=== PATIENT | male | born 1980 | race Hispanic/Latino ===

== ENCOUNTER 2019-05-08 09:56 | Emergency (ER) | payer OTHER ==
[2019-05-08 10:52] LABS: Absolute Lymphocytes (CBC) 1.4 K/uL (0.7-4.9); Basophils % 0.5 % (0-1.3); Eosinophils % 0.5 % (0-4.4); Lymphocytes % 25.1 % (15.3-44.8); MPV 8.3 fL (7.6-11.3); Monocytes % 9.6 % (3.3-12.3); RBC Red Blood Cell Count 5.49 M/uL (4.33-5.43)
--- NOTE | 2019-05-08 11:18 | RAD REPORT ---
EXAM DESCRIPTION: RAD - Chest Single View - 05/08/2019 10:58 am CLINICAL HISTORY: Cough, hyperglycemia COMPARISON: February 2012 TECHNIQUE: AP portable chest image was obtained 1053 hours . FINDINGS: Lungs are clear. Heart and vasculature are normal. No measurable pleural effusion and no p neumothorax. No acute bony abnormality seen. No acute aortic findings suspected. IMPRESSION: No acute cardiopulmonary process. No significant interval change.
[2019-05-08 11:24] LABS: Potassium 4.3 mmol/L (3.5-5.1)
[2019-05-08] MEDS ORDERED: NA CHLORIDE 0.9% 1,000 ML ONE (12:13)
[2019-05-08] MEDS ORDERED: INSULIN -REGULAR HUMAN 50 UNIT/0.5 ML ML ONE (12:13)
[2019-05-08 12:48] LABS: Urine Blood NEGATIVE (NEG); Urine Glucose 3+ (NEG); Urine Protein NEGATIVE (NEG); Urine Specific Gravity <1.005 (1.005-1.030); Urine pH 5.5 (5.0-7.0)
--- NOTE | 2019-05-08 13:13 | ER ---
Nurse's Notes [facility] Name: Ezequiel Figueroa Age: 38 yrs Sex: Male : 1980 Arrival Date: 05/08/2019 Time: 09:58 Bed 19 Private MD: Diagnosis: New onset diabetes mellitus;hyperglycemia Presentation: 05/08 10:12 Presenting complaint: Patient states: at home, my sugar is 600 yesterday, denies other hj symptoms; states "i just want my sugar to be checked";. Transition of care: patient was not received from another setting of care. Onset of symptoms was May 08, 2019. Risk Assessment: Do you want to hurt yourself or someone else? Patient reports no desire to harm self or others. Initial Sepsis Screen: Does the patient meet any 2 criteria? No. Patient's initial sepsis screen is negative. Does the patient have a suspected source of infection? No. Patient's initial sepsis screen is negative. Care prior to arrival: None. 10:12 Method Of Arrival: Ambulatory 10:12 Acuity: BRANDI 3 hj Triage Assessment: 10:15 General: Appears in no apparent distress. comfortable, Behavior is calm, cooperative, bp appropriate for age. Pain: Denies pain. EENT: No deficits noted. Neuro: No deficits noted. Cardiovascular: No deficits noted. Respiratory: No deficits noted. GI: No signs and/or symptoms were reported involving the gastrointestinal system. : No signs and/or symptoms were reported regarding the genitourinary system. Derm: No deficits noted. Musculoskeletal: No deficits noted. Historical: - Allergies: 10:14 Benadryl; hj - PMHx: 10:14 Hypertension; hj - PSHx: 10:14 None; hj - Immunization history:: Adult Immunizations up to date. - Social history:: Smoking status: Patient uses tobacco products, unknown amount. - Ebola Screening: : No symptoms or risks identified at this time. Screenin:15 Abuse screen: Denies threats or abuse. Denies injuries from another. Nutritional bp screening: No deficits noted. Tuberculosis screening: No symptoms or risk factors identified. Fall Risk None identified. Assessment: 10:15 General: SEE TRIAGE NTOE. bp 11:25 Reassessment: Dr Fu notified of critical lab Glucose 571. ss 12:20 Reassessment: IVF INFUSING, REPEAT BGL PENDING. bp 13:24 Reassessment: PT D/C HOME AMBULATORY, DX WITH HYPERGLYCEMIA. bp Vital Signs: 10:14 Pulse 94; Resp 18; Temp 98.0(TE); Pulse Ox 98% on R/A; Weight 85.73 kg; Height 5 ft. 9 hj in. (175.26 cm); Pain 0/10; 10:37 BP 107 / 74; ss 12:20 BP 114 / 77; Pulse 92; Resp 16; Pulse Ox 98% ; bp 10:14 Body Mass Index 27.91 (85.73 kg, 175.26 cm) hj ED Course: 09:58 Patient arrived in ED. as 10:13 Triage completed. hj 10:14 Arm band placed on right wrist. hj 10:22 Robin Ralph, STELLA is Primary Nurse. bp 10:27 Patient has correct armband on for positive identification. Placed in gown. Bed in low mh5 position. Call light in reach. Side rails up X 1. Pulse ox on. NIBP on. 10:32 Bienvenido Fu MD is Attending Physician. ps1 10:33 Inserted saline lock: 20 gauge in right antecubital area, using aseptic technique. ss Blood collected. Patient maintains SpO2 saturation greater than 95% on room air. 10:57 X-ray completed. Portable x-ray completed in exam room. Patient tolerated procedure jb2 well. 10:58 CXR XRAY In Process Unspecified. EDMS 13:24 No provider procedures requiring assistance completed. IV discontinued, intact, bp bleeding controlled, No redness/swelling at site. Pressure dressing applied. Administered Medications: 12:00 Drug: NS 0.9% 1000 ml Route: IV; Rate: 1 bolus; Site: right antecubital; bp 12:57 Follow up: IV Status: Completed infusion; IV Intake: 1000ml bp 12:03 Drug: Insulin Regular Human 5 units {Co-Signature: ls4 (Yadira oGncalves RN).} Route: bp Sub-Q; Site: right upper arm; 12:56 Follow up: Response: No adverse reaction bp Point of Care Testing: Blood Glucose: 10:16 Blood Glucose: 500 mg/dL; hj 13:03 Blood Glucose: 221 mg/dL; bp 10:16 greater than 500 hj Ranges: Intake: 12:57 IV: 1000ml; Total: 1000ml. bp Outcome: 13:13 Discharge ordered by . ps1 13:25 Discharged to home ambulatory, with family. bp 13:25 Condition: stable 13:25 Discharge instructions given to patient, Instructed on discharge instructions, follow up and referral plans. medication usage, Demonstrated understanding of instructions, follow-up care, medications, Prescriptions given X 3. 13:26 Patient left the ED. bp Signatures: Dispatcher [employer] EDMS Louie Rubalcava Amelia as Smirch, Shelby, STELLA RN Diallo Johansen RN RN Lauren Mccauley [facility] Robin Ralph RN RN bp Bienvenido Fu MD MD ps1 Yadira Goncalves RN ls4
--- NOTE | 2019-05-08 13:14 | EDPHYS ---
Physician Documentation [facility] Name: Ezequiel Figueroa Age: 38 yrs Sex: Male : 1980 Arrival Date: 05/08/2019 Time: 09:58 Bed 19 Private MD: ED Physician Bienvenido Fu HPI: 05/08 11:25 This 38 yrs old Male presents to ER via Ambulatory with complaints of High ps1 Blood Sugar. 11:25 patient hx of HTN. No hx of DM. Patient states that he has had symptoms of ps1 hyperglycemia. Vision changes over months, polydipsia, polyuria, drinking a lot of tea. Random BS checked at home and elevated. >600 in triage. . Historical: - Allergies: 10:14 Benadryl; hj - PMHx: 10:14 Hypertension; hj - PSHx: 10:14 None; hj - Immunization history:: Adult Immunizations up to date. - Social history:: Smoking status: Patient uses tobacco products, unknown amount. - Ebola Screening: : No symptoms or risks identified at this time. ROS: 11:25 Constitutional: Negative for fever, chills, and weight loss. ps1 11:25 Cardiovascular: Negative for chest pain, palpitations, and edema, Respiratory: Negative for shortness of breath, cough, wheezing, and pleuritic chest pain, Abdomen/GI: Negative for abdominal pain, nausea, vomiting, diarrhea, and constipation, MS/Extremity: Negative for injury and deformity, Skin: Negative for injury, rash, and discoloration. 11:25 Constitutional: Positive for fatigue. 11:25 Eyes: Positive for visual disturbance. 11:25 Endocrine: Positive for polydipsia, polyuria. Exam: 11:25 Constitutional: This is a well developed, well nourished patient who is awake, alert, ps1 and in no acute distress. Head/Face: Normocephalic, atraumatic. ENT: Nares patent. No nasal discharge, no septal abnormalities noted. Tympanic membranes are normal and external auditory canals are clear. Oropharynx with no redness, swelling, or masses, exudates, or evidence of obstruction, uvula midline. Mucous membranes moist. Chest/axilla: Normal chest wall appearance and motion. Nontender with no deformity. No lesions are appreciated. Cardiovascular: Regular rate and rhythm. No gallops, murmurs, or rubs. Normal PMI, no JVD. No pulse deficits. Respiratory: Lungs have equal breath sounds bilaterally, clear to auscultation and percussion. No rales, rhonchi or wheezes noted. No increased work of breathing, no retractions or nasal flaring. Abdomen/GI: Soft, non-tender, with normal bowel sounds. No distension or tympany. No guarding or rebound. No evidence of tenderness throughout. Skin: Warm, dry with normal turgor. Normal color with no rashes, no lesions, and no evidence of cellulitis. MS/ Extremity: Pulses equal, no cyanosis. Neurovascular intact. Full, normal range of motion. Neuro: Awake and alert, GCS 15, oriented to person, place, time, and situation. Cranial nerves II-XII grossly intact. Sensory grossly intact. Vital Signs: 10:14 Pulse 94; Resp 18; Temp 98.0(TE); Pulse Ox 98% on R/A; Weight 85.73 kg; Height 5 ft. 9 hj in. (175.26 cm); Pain 0/10; 10:37 BP 107 / 74; ss 12:20 BP 114 / 77; Pulse 92; Resp 16; Pulse Ox 98% ; bp 10:14 Body Mass Index 27.91 (85.73 kg, 175.26 cm) hj MDM: 10:41 Patient medically screened. ps1 13:09 Data reviewed: vital signs, nurses notes, and as a result, I will discharge patient. ps1 Counseling: I had a detailed discussion with the patient and/or guardian regarding: the historical points, exam findings, and any diagnostic results supporting the discharge/admit diagnosis, lab results, the need for outpatient follow up. ED course: glucose responed to fluids and sq insulin administration. No evidence of DKA. Home with metformin 500 bid and glipizide 10mg. . 05/08 10:24 Order name: CBC with Diff; Complete Time: 11:08 bp 05/08 10:24 Order name: BMP; Complete Time: 11:28 bp 05/08 10:40 Order name: Hemoglobin A1c ps1 05/08 10:40 Order name: CXR XRAY; Complete Time: 11:25 ps1 05/08 11:53 Order name: Urine Dipstick--Ancillary (enter results); Complete Time: 13:02 ag 05/08 13:03 Order name: Glucose ps1 05/08 10:36 Order name: Glucose Level; Complete Time: 10:36 ss 05/08 10:40 Order name: Urine Dipstick-Ancillary (obtain specimen); Complete Time: 11:42 ps1 Administered Medications: 12:00 Drug: NS 0.9% 1000 ml Route: IV; Rate: 1 bolus; Site: right antecubital; bp 12:57 Follow up: IV Status: Completed infusion; IV Intake: 1000ml bp 12:03 Drug: Insulin Regular Human 5 units {Co-Signature: ls4 (Yadira Goncalves RN).} Route: bp Sub-Q; Site: right upper arm; 12:56 Follow up: Response: No adverse reaction bp Point of Care Testing: Blood Glucose: 10:16 Blood Glucose: 500 mg/dL; hj 13:03 Blood Glucose: 221 mg/dL; bp 10:16 greater than 500 hj Ranges: Critical Glucose Levels:Adult <50 mg/dl or >400 mg/dl <40 mg/dl or >180 mg/dl Disposition: 05/08/19 13:13 Discharged to Home. Impression: New onset diabetes mellitus, hyperglycemia. - Condition is Stable. - Discharge Instructions: Type 2 Diabetes Mellitus, Diagnosis, Adult, Basic Carbohydrate Counting for Diabetes Mellitus, Diabetes Mellitus and Food. - Prescriptions for Metformin 500 mg Oral Tablet - take 1 tablet by ORAL route every 12 hours for 30 days Then take 1 tablet with morning meals AND evening meals; 60 tablet. Glipizide 10 mg Oral Tablet - take 1 tablet by ORAL route once daily before a meal; 20 tablet. - Medication Reconciliation Form, Thank You Letter, Antibiotic Education, Prescription Opioid Use form. - Follow up: Private Physician; When: 48 Hours; Reason: Further diagnostic work-up, Recheck today's complaints, Continuance of care, Re-evaluation by your physician. - Problem is new. - Symptoms have improved. Signatures: Dispatcher [employer] Lisbet Saucedo RN RN Diallo Johansen RN RN hj Robin Ralph RN RN bp Bienvenido Fu MD MD ps1 Yadira Goncalves RN ls4 Corrections: (The following items were deleted from the chart) 13:26 13:13 05/08/2019 13:13 Discharged to Home. Impression: New onset diabetes mellitus; bp hyperglycemia. Condition is Stable. Forms are Medication Reconciliation Form, Thank You Letter, Antibiotic Education, Prescription Opioid Use. Follow up: Private Physician; When: 48 Hours; Reason: Further diagnostic work-up, Recheck today's complaints, Continuance of care, Re-evaluation by your physician. Problem is new. Symptoms have improved. ps1
[2019-05-10 17:14] VITALS: BP 114/77; TEMP 98; O2SAT 98
== END 2019-05-08 13:26 | disposition home or self-care (01) ==
LOC: ER 09:56
DX: E11.65 Type 2 diabetes mellitus with hyperglycemia (principal); I10 Essential (primary) hypertension; Z72.0 Tobacco use; Z88.8 Allergy status to other drugs, medicaments and biological substances
CPT/HCPCS: 85025; 80048; 36415; 82947; 82962 ×2; 81003; 71045; 96360; 96372; 99284; J7030

== ENCOUNTER 2020-05-02 10:17 | Emergency (ER) | payer OTHER ==
[2020-05-02 11:06] LABS: Absolute Lymphocytes (CBC) 1.7 K/uL (0.7-4.9); Basophils % 0.5 % (0-1.3); Hematocrit 48.7 % (39.6-49.0); Lymphocytes % 24.1 % (15.3-44.8); MPV 8.4 fL (7.6-11.3); RBC Red Blood Cell Count 5.61 M/uL (4.33-5.43)
[2020-05-02] MEDS ORDERED: LORazepam 2 MG/ML VIAL ONE ×2 (11:11→13:36)
[2020-05-02] MEDS ORDERED: HALOPERIDOL LACT 5 MG/ML INJ ONE (11:12)
[2020-05-02] MEDS ORDERED: hydrOXYzine HCL 25 MG TAB ONE (11:12)
[2020-05-02 11:13] LABS: Protime INR 0.92
[2020-05-02 11:46] LABS: ALT/SGPT 20 U/L (12-78); AST/SGOT 5 U/L (15-37); Alkaline Phosphatase 110 U/L (45-117); BUN Blood Urea Nitrogen 8 mg/dL (7-18); Bicarbonate 23 mmol/L (21-32); Bilirubin Direct < 0.1 mg/dL (0-0.2); Bilirubin Total 0.4 mg/dL (0.2-1.0); Glucose Level 278 mg/dL (74-106); Potassium 3.8 mmol/L (3.5-5.1); Protein, Total 7.7 g/dL (6.4-8.2); Sodium Level 138 mmol/L (136-145)
[2020-05-02 12:28] LABS: Barbiturates NEGATIVE (NEGATIVE); Benzodiazepines NEGATIVE (NEGATIVE); Cocaine NEGATIVE (NEGATIVE); METHAMPHETAM NEGATIVE (NEGATIVE); Methadone NEGATIVE (NEGATIVE); Opiates NEGATIVE (NEGATIVE); Phencyclidine NEGATIVE (NEGATIVE); THC Cannibis NEGATIVE (NEGATIVE)
[2020-05-02] MEDS ORDERED: NICOTINE 21 MG/PAT TD ONE (13:36)
[2020-05-02 14:08] LABS: Urine Blood NEGATIVE (NEG); Urine Glucose 2+ (NEG); Urine Protein NEGATIVE (NEG)
--- NOTE | 2020-05-02 14:58 | EDPHYS ---
Physician Documentation [facility] Name: Ezequiel Figueroa Age: 39 yrs Sex: Male : 1980 Arrival Date: 05/02/2020 Time: 10:19 Bed 18 Private MD: ED Physician Orestes Villalobos HPI: 05/02 11:13 This 39 yrs old Male presents to ER via EMS with complaints of Psych Problem. jr8 11:13 The patient presents to the emergency department with psychosis, has experienced jr8 auditory hallucinations, has experienced visual hallucinations. Onset: The symptoms/episode began/occurred gradually, 1 week(s) ago. Past psychiatric history: History of Schizophrenia . Associated signs and symptoms: The patient has no apparent associated signs or symptoms. Severity of symptoms: At their worst the symptoms were moderate in the emergency department the symptoms are unchanged. The patient has experienced similar episodes in the past, several times. It is unknown whether or not the patient has recently seen a physician. Family called EMS because patient was becoming more aggravated and delusional. History of schizophrenia and has been off of his medications for past week. Hearing and seeing things. Talking to people who are not presently in room. Historical: - Allergies: 10:24 Benadryl; ph - PMHx: 10:24 Hypertension; ph 10:25 Schizophrenia; Diabetes - IDDM; ph - PSHx: 10:24 None; ph - Immunization history:: Adult Immunizations unknown. - Social history:: Smoking status: unknown. ROS: 11:13 Eyes: Negative for injury, pain, redness, and discharge, ENT: Negative for injury, jr8 pain, and discharge, Neck: Negative for injury, pain, and swelling, Cardiovascular: Negative for chest pain, palpitations, and edema, Respiratory: Negative for shortness of breath, cough, wheezing, and pleuritic chest pain, Abdomen/GI: Negative for abdominal pain, nausea, vomiting, diarrhea, and constipation, Back: Negative for injury and pain, MS/Extremity: Negative for injury and deformity, Skin: Negative for injury, rash, and discoloration, Neuro: Negative for headache, weakness, numbness, tingling, and seizure. 11:13 Psych: Positive for auditory hallucinations, visual hallucinations, Negative for suicide gesture, suicidal ideation. Exam: 11:13 Eyes: Pupils equal round and reactive to light, extra-ocular motions intact. Lids and jr8 lashes normal. Conjunctiva and sclera are non-icteric and not injected. Cornea within normal limits. Periorbital areas with no swelling, redness, or edema. ENT: Nares patent. No nasal discharge, no septal abnormalities noted. Tympanic membranes are normal and external auditory canals are clear. Oropharynx with no redness, swelling, or masses, exudates, or evidence of obstruction, uvula midline. Mucous membranes moist. Neck: Trachea midline, no thyromegaly or masses palpated, and no cervical lymphadenopathy. Supple, full range of motion without nuchal rigidity, or vertebral point tenderness. No Meningismus. Cardiovascular: Regular rate and rhythm with a normal S1 and S2. No gallops, murmurs, or rubs. Normal PMI, no JVD. No pulse deficits. Respiratory: Lungs have equal breath sounds bilaterally, clear to auscultation and percussion. No rales, rhonchi or wheezes noted. No increased work of breathing, no retractions or nasal flaring. Abdomen/GI: Soft, non-tender, with normal bowel sounds. No distension or tympany. No guarding or rebound. No evidence of tenderness throughout. Back: No spinal tenderness. No costovertebral tenderness. Full range of motion. Skin: Warm, dry with normal turgor. Normal color with no rashes, no lesions, and no evidence of cellulitis. MS/ Extremity: Pulses equal, no cyanosis. Neurovascular intact. Full, normal range of motion. Neuro: Awake and alert, GCS 15, oriented to person, place, time, and situation. Cranial nerves II-XII grossly intact. Motor strength 5/5 in all extremities. Sensory grossly intact. Cerebellar exam normal. Normal gait. 11:13 Psych: Behavior/mood is cooperative, Affect is animated, Oriented to person, place, time, Patient has no thoughts/intents to harm self or others. Judgement / Insight is impaired. Delusions/hallucinations are present and described as see hpi. Vital Signs: 10:19 BP 134 / 81; Pulse 96; Resp 18; Temp 98.7; Pulse Ox 96% ; Weight 96.16 kg; Height 5 ft. ph 11 in. (180.34 cm); 14:12 BP 127 / 82; Pulse 86; Resp 16; Pulse Ox 96% ; ah 10:19 Body Mass Index 29.57 (96.16 kg, 180.34 cm) ph MDM: 10:23 Patient medically screened. [facility] 14:10 Data reviewed: vital signs, nurses notes, lab test result(s), EKG. Data interpreted: Pulse oximetry: on room air is 96 %. Interpretation: normal. Counseling: I had a detailed discussion with the patient and/or guardian regarding: the historical points, exam findings, and any diagnostic results supporting the discharge/admit diagnosis, lab results. ED course: Talked with [facility] and [facility] patient needs inpatient therapy. Trying for placement now . 14:55 ED course: Dr. Rodriguez at [facility] accepted patient for acute psychosis . [facility] 05/02 10:23 Order name: Acetaminophen; Complete Time: 12:12 [facility] 05/02 10:23 Order name: Basic Metabolic Panel; Complete Time: 12:12 [facility] 05/02 10:23 Order name: CBC with Diff; Complete Time: 11:10 [facility] 05/02 10:23 Order name: ETOH Level; Complete Time: 12:12 [facility] 05/02 10:23 Order name: Hepatic Function; Complete Time: 12:12 [facility] 05/02 10:23 Order name: PT-INR; Complete Time: 11:18 [facility] 05/02 10:23 Order name: Ptt, Activated; Complete Time: 11:18 [facility] 05/02 10:23 Order name: Salicylate; Complete Time: 12:15 [facility] 05/02 10:23 Order name: Urine Drug Screen; Complete Time: 12:37 [facility] 05/02 10:23 Order name: EKG; Complete Time: 10:24 [facility] 05/02 12:20 Order name: Urine Dipstick--Ancillary (enter results); Complete Time: 14:10 05/02 10:23 Order name: EKG - Nurse/Tech; Complete Time: 11:34 [facility] 05/02 10:23 Order name: IV Saline Lock; Complete Time: 11:34 [facility] 05/02 10:23 Order name: Labs collected and sent; Complete Time: 11:34 [facility] 05/02 10:23 Order name: Urine Dipstick-Ancillary (obtain specimen); Complete Time: 12:22 Administered Medications: 11:15 Drug: HALdol 2 mg Route: IVP; Site: right antecubital; 12:22 Follow up: Response: No adverse reaction 11:15 Drug: Ativan 1 mg Route: IVP; Site: right antecubital; 12:21 Follow up: Response: No adverse reaction 11:15 Drug: hydrOXYzine 25 mg Route: PO; 12:21 Follow up: Response: No adverse reaction Disposition: 19:39 Co-signature as Attending Physician, Orestes Villalobos MD. [email or web address] Disposition: 05/02/20 14:57 Transfer ordered to Psych Facility. Diagnosis are Schizophrenia, Acute Psychosis. - Reason for transfer: Higher level of care. - Accepting physician is Dr. Rodriguez. - Condition is Stable. - Problem is new. - Symptoms have improved. Signatures: Dispatcher [employer] EDMS Rao Jordan PA PA [id number] Suze Jorge, RN RN Swapna Salas Amy, RN RN ah Holmes, Maurice, MD MD [email or web address] Corrections: (The following items were deleted from the chart) 15:57 14:57 05/02/2020 14:57 Transfer ordered to Psych Facility. Diagnosis is Schizophrenia; eb Acute Psychosis. Reason for transfer: Higher level of care. Accepting physician is Dr. Rodriguez. Condition is Stable. Problem is new. Symptoms have improved. jr8
--- NOTE | 2020-05-02 14:58 | ER ---
Nurse's Notes [facility] Name: Ezequiel Figueroa Age: 39 yrs Sex: Male : 1980 Arrival Date: 05/02/2020 Time: 10:19 Bed 18 Private MD: Diagnosis: Schizophrenia;Acute Psychosis Presentation: 05/02 10:19 Chief complaint: EMS states: Pt c/o visual and auditory hallucinations, has extensive ph psychiatric hx, family reports that he has been off of his medications for approx 1 week, denies SI or HI, states, " I'm just having an episode" BGL 261, pt self administered insulin before coming to ED, other VSS. Coronavirus screen: Patient denies a cough. Patient denies shortness of breath or difficulty breathing. Patient denies measured and/or subjective temperature greater than 100.4F prior to today's visit. Patient denies travel on a cruise ship or to a country the [facility] currently lists as an affected area. Patient denies contact with known and/or suspected case of COVID-19. Ebola Screen: No symptoms or risks identified at this time. Initial Sepsis Screen: Does the patient meet any 2 criteria? No. Patient's initial sepsis screen is negative. Does the patient have a suspected source of infection? No. Patient's initial sepsis screen is negative. Risk Assessment: Do you want to hurt yourself or someone else? Patient reports no desire to harm self or others. Onset of symptoms was May 02, 2020. 10:19 Method Of Arrival: EMS: [facility] ph 10:19 Acuity: BRANDI 2 ph Historical: - Allergies: 10:24 Benadryl; ph - PMHx: 10:24 Hypertension; ph 10:25 Schizophrenia; Diabetes - IDDM; ph - PSHx: 10:24 None; ph - Immunization history:: Adult Immunizations unknown. - Social history:: Smoking status: unknown. Screenin:39 Abuse screen: Denies threats or abuse. Nutritional screening: No deficits noted. Tuberculosis screening: No symptoms or risk factors identified. Fall Risk None identified. Assessment: 10:45 General: Appears in no apparent distress. Behavior is inappropriate for age. Pain: Denies pain. Neuro: Level of Consciousness is awake, alert, Oriented to. Cardiovascular: Capillary refill < 3 seconds Patient's skin is warm and dry. Respiratory: Airway is patent Respiratory effort is even, unlabored, Respiratory pattern is regular, symmetrical. Derm: Skin is intact, is healthy with good turgor, Skin is dry. 11:45 Reassessment: Patient and/or family updated on plan of care and expected duration. Pain ah level reassessed. Patient is alert, oriented x 3, equal unlabored respirations, skin warm/dry/pink. Mom at bedside. No needs voiced at this time. 13:20 Reassessment: Pt on facetime with [employer] via IPad. 13:26 Reassessment: Pt pacing back and forth in ER room asking to go outside and smoke and states that he is about to lose it and needs something. Informed Pt I will talk with physician and get him a nicotine patch. 13:35 Reassessment: Placed a nicotine patch on patients left deltoid and gave him ativan per provider order. Pt lying in bed. Mother is on facetSendMe with [employer]. 14:00 Reassessment: Pt lying in bed resting with eyes closed and resp even and unlabored. No ah needs voiced at this time. 14:10 Reassessment: Pt walked to the door and asked to go smoke outside. Informed Pt that he ah has a nicotine patch on and he cannot go outside. Redirected Pt back to the bed and encouraged him to stay in bed so he will not fall due to the medication. Pt voiced understanding and got back in bed. Vitals obtained at this time. 14:40 Reassessment: Pt lying in bed resting on his left side with eyes closed and resp even ah and unlabored. 14:51 Reassessment: Nurse to nurse report given to madelaine south. Psych: 11:00 Subjective: Patient's mood is Hallucinations are auditory. Objective: Patient is cooperative, irritable, Speech is rambling, rapid, Affect is appropriate. Interventions: Urine collected and sent for urine drug test. Patient reassessed during use of restraints. Patient is physically safe. Suicide Risk Assessment: Sad Person Scale: Sex of patient: Male: Score 1 point. Age of patient: Score 0 point if patient falls outside of specified age parameters. Previous Attempt: Score 1 point if patient has previously attempted suicide. Substance Abuse: Score 0 point if patient does not abuse alcohol or drugs. Rational Thinking: Score 1 point if patient is lacking rational thinking. Social Support: Score 0 if social support is present/available. Relationship: Score 1 point if patient is , , , or for a single male Chronic Sickness: Score 1 point if patient has illness, chronic, debilitating, or severe. TOTAL POINTS: If total points are 5-6, proposed clinical action is to strongly consider hospitalization, depending upon confidence in the follow-up arrangement. Implement suicide precautions. Safety Checks: Pt has been placed in a hallway bed/chair. Visitors are present. Pt denies substance abuse. Vital Signs: 10:19 BP 134 / 81; Pulse 96; Resp 18; Temp 98.7; Pulse Ox 96% ; Weight 96.16 kg; Height 5 ft. ph 11 in. (180.34 cm); 14:12 BP 127 / 82; Pulse 86; Resp 16; Pulse Ox 96% ; ah 10:19 Body Mass Index 29.57 (96.16 kg, 180.34 cm) ph ED Course: 10:19 Patient arrived in ED. ph 10:22 Triage completed. ph 10:23 Rao Jordan PA is PHCP. jr8 10:23 Orestes Villalobos MD is Attending Physician. jr8 10:25 Arm band placed on Patient placed in an exam room, on a stretcher, on pulse oximetry. ph 10:38 Teresa Andrade, RN is Primary Nurse. ah 11:00 Patient has correct armband on for positive identification. Bed in low position. Call light in reach. Side rails up X 1. Adult w/ patient. 11:00 Inserted saline lock: 20 gauge in right antecubital area, using aseptic technique. ah 12:16 [facility] Crisis line called/ a screener will be paged. eb 13:02 connected [facility] with Teresa Hung/. eb 14:24 called and faxed over patient chart to [facility] in the attempt to transfer the eb patient. Sandrita from [facility] notified. 14:40 connected the nurse from [facility] with Teresa Hung for patient transfer eb consultation. 15:00 No provider procedures requiring assistance completed. IV discontinued, intact, ah bleeding controlled, No redness/swelling at site. Pressure dressing applied. Administered Medications: 11:15 Drug: HALdol 2 mg Route: IVP; Site: right antecubital; 12:22 Follow up: Response: No adverse reaction ah 11:15 Drug: Ativan 1 mg Route: IVP; Site: right antecubital; 12:21 Follow up: Response: No adverse reaction ah 11:15 Drug: hydrOXYzine 25 mg Route: PO; ah 12:21 Follow up: Response: No adverse reaction ah Outcome: 14:57 ER care complete, transfer ordered by . levon 15:15 Condition: stable ah 15:45 Transferred by ground EMS Transfer form completed. 15:57 Patient left the ED. eb Signatures: Rao Jordan PA PA jrSuze Nunez, RN RN Swapna Romo Amy RN RN
[2020-05-02 16:15] VITALS: TEMP 98.7; O2SAT 96
[2020-05-02 16:16] VITALS: BP 127/82
--- NOTE | 2020-05-03 06:49 | EKG ---
Test Date: 2020-05-02 Test Time: 11:04:32 Avionics System Engineer: EVANGELINA MEASUREMENT RESULTS: Intervals: Rate: 82 DE: 164 QRSD: 90 QT: 374 QTc: 436 [place]: P: 54 DE: 164 QRS: 64 T: 59 INTERPRETIVE STATEMENTS: Normal sinus rhythm Septal infarct, age undetermined Abnormal ECG Compared to ECG 04/11/2016 03:58:16 No significant changes Electronically Signed On 05-03-20 06:48:03 CDT by Mahad Gill
== END 2020-05-02 15:57 ==
LOC: ER 10:17
DX: F20.9 Schizophrenia, unspecified (principal); I10 Essential (primary) hypertension; Z88.8 Allergy status to other drugs, medicaments and biological substances
CPT/HCPCS: 93005; 85025; 80048; 36415; 80320; 80329 ×2; 85610; 80076; 80307 ×8; 85730; 81003; 96375; 96374; 99285; J1630

== ENCOUNTER → 2023-12-28 | Emergency (ER) | payer OTHER ==
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
[2023-12-28 01:23] VITALS: BP 127/71; TEMP 98; O2SAT 98
== END ==
LOC: ER 00:17
DX: Z71.1 Person with feared health complaint in whom no diagnosis is made (principal)

== ENCOUNTER 2025-01-12 19:13 | Emergency (ER) | payer OTHER ==
[2025-01-12] MEDS ORDERED: HALOPERIDOL LACT 5 MG/ML INJ ONE (20:36)
[2025-01-12] MEDS ORDERED: NA CHLORIDE 0.9% 1,000 ML ONE (21:10)
[2025-01-12 21:12] LABS: Absolute Eosinophils 0.1 K/uL (0-0.5); Absolute Lymphocytes (CBC) 1.8 K/uL (0.7-4.9); Absolute Monocytes 0.7 K/uL (0.1-1.3); Absolute Neutrophil 4.9 K/uL (1.8-8.0); Basophils % 0.5 % (0-1.3); Eosinophils % 0.9 % (0-4.4); Hematocrit 41.3 % (39.6-49.0); Hemoglobin 14.3 g/dL (13.6-17.9); MCH 30.3 pg (27.0-35.0); MCHC 34.6 g/dL (32.0-36.0); MCV 87.7 fL (80-100); MPV 8.1 fL (7.6-11.3); Monocytes % 9.3 % (3.3-12.3); Neutrophils % 65.3 % (41.7-73.7); Nucleated Red Blood Cells % 0.1 % (0-0); Platelets 242 thou/uL (152-406); RBC Red Blood Cell Count 4.71 M/uL (4.33-5.43); Red Cell Distribution Width 13.3 % (12.1-15.2)
[2025-01-12 21:13] LABS: Specific Gravity 1.009 (1.005-1.030); Urine Bilirubin NEGATIVE (Negative); Urine Blood Negative (Negative); Urine Clarity Clear (Clear); Urine Color Colorless (Yellow); Urine Glucose 1+ (Negative); Urine Ketones NEGATIVE (Negative); Urine Microscopic Reflex YN NO UMIC; Urine Nitrite NEGATIVE (Negative); Urine Protein NEGATIVE (Negative); Urine Urobilinogen Normal (Normal); Urine pH 6.5 (5.0-7.0)
[2025-01-12 21:21] LABS: PT Prothrombin Time 12.2 SECONDS (10.0-13.0); Protime INR 1.07
[2025-01-12 21:23] LABS: Barbiturates NEGATIVE (NEGATIVE); Benzodiazepines NEGATIVE (NEGATIVE); Cocaine NEGATIVE (NEGATIVE); METHAMPHETAM POSITIVE (NEGATIVE); Methadone NEGATIVE (NEGATIVE); Opiates NEGATIVE (NEGATIVE); Phencyclidine NEGATIVE (NEGATIVE); THC Cannibis POSITIVE (NEGATIVE)
[2025-01-12 21:37] LABS: ALT/SGPT 19 U/L (16-61); Albumin 3.5 g/dL (3.4-5.0); Alkaline Phosphatase 84 U/L (45-117); Anion Gap 10.7 mEq/L (5.0-15.0); BUN Blood Urea Nitrogen 8 mg/dL (7-18); Bicarbonate 27 mEq/L (21-32); Bilirubin Total 0.4 mg/dL (0.2-1.0); Globulin 3.5 g/dL (2.3-3.5); Glomerular Filtration Rate 109 ml/min (=/>90); Glucose Level 197 mg/dL (74-106); Potassium 3.7 mEq/L (3.5-5.1); Sodium Level 138 mEq/L (136-145)
[2025-01-12 21:39] LABS: AST/SGOT < 10 U/L (15-37); Bilirubin Direct < 0.2 mg/dL (0-0.2); Bilirubin Indirect, Calculated 0.2 mg/dL (0.2-0.8)
--- NOTE | 2025-01-12 22:09 | RAD REPORT ---
EXAM: Chest Single View HISTORY: 44 years Male tachypnea COMPARISON: None. FINDINGS: LUNGS/PLEURA: The lungs are clear. No pleural effusions or pneumothorax. No pulmonary edema. CARDIAC/MEDIASTINUM: The cardiac silhouette is within normal limits. UPPER ABDOMEN: No significant abnormality. BONES: No acute abnormality. LINES/TUBES/OTHER: N/A IMPRESSION: No evidence of acute cardiopulmonary disease. No significant change from prior.
--- NOTE | 2025-01-12 22:11 | ER ---
Nurse's Notes [facility] Name: Ezequiel Figueroa Age: 44 yrs Sex: Male : 1980 Arrival Date: 01/12/2025 Time: 19:13 Bed 8 Private MD: Diagnosis: Anxiety disorder, unspecified Presentation: 01/12 19:39 Chief complaint: Parent and/or Guardian states: Patient has been having anxiety and cm10 gasping for air over the last few weeks. Pts mom states that patient is having swelling to lips after eating dinner. Coronavirus screen: Client denies travel out of the [place] in the last 14 days. Ebola Screen: Patient denies travel to an Ebola-affected area in the 21 days before illness onset. Initial Sepsis Screen: Does the patient meet any 2 criteria? HR > 90 bpm. Does the patient have a suspected source of infection? No. Patient's initial sepsis screen is negative. Risk Assessment: Do you want to hurt yourself or someone else? Patient reports no desire to harm self or others. Onset of symptoms is unknown. 19:39 Method Of Arrival: Ambulatory cm10 19:39 Acuity: BRANDI 3 cm10 Triage Assessment: 19:44 General: Appears uncomfortable, Behavior is anxious, restless. Neuro: No deficits cm10 noted. Level of Consciousness is awake, alert, obeys commands, Oriented to person, place, time, situation, Appropriate for age. Respiratory: No deficits noted. Airway is patent Respiratory effort is even, unlabored, Respiratory pattern is regular, symmetrical. 22:10 Pain: Denies pain. kd3 Historical: - Allergies: 19:39 Benadryl; cm10 - Home Meds: 19:41 benztropine 0.5 mg Oral tablet [Active]; metformin 1,000 mg Oral tablet 2 times per day cm10 [Active]; paliperidone 6 mg oral Tablet, Extended Release 24 hr [Active]; glipizide 10 mg Oral tablet 1 tab [Active]; trazodone 100 mg Oral tablet [Active]; - PMHx: 19:39 Bipolar disorder; Diabetes - IDDM; Hypertension; Schizophrenia; cm10 - Immunization history:: Adult Immunizations up to date. - Infectious Disease History:: Denies. - Social history:: Smoking status: Patient reports the use of cigarette tobacco products, smokes more than three packs cigarettes per day. - Family history:: not pertinent. - Hospitalizations: : No recent hospitalization is reported. Screenin:09 [facility] ED Fall Risk Assessment (Adult) History of falling in the last 3 months, kd3 including since admission No falls in past 3 months (0 pts) Confusion or Disorientation No (0 pts) Intoxicated or Sedated No (0 pts) Impaired Gait No (0 pts) Mobility Assist Device Used No (0 pt) Altered Elimination No (0 pt) Score/Fall Risk Level 0 - 2 = Low Risk Oriented to surroundings. Abuse screen: Denies threats or abuse. Denies injuries from another. Nutritional screening: No deficits noted. Tuberculosis screening: No symptoms or risk factors identified. Assessment: 22:10 General: Pt reports improvement of signs and symptoms with interventions and states he trinity is ready to go home. Mother is at the bedside. vss . Vital Signs: 19:39 BP 160 / 110; Pulse 98; Resp 24; Temp 97.6(O); Pulse Ox 98% on R/A; Weight 90.72 kg; cm10 Height 5 ft. 5 in. ; 21:27 BP 157 / 100; Pulse 90; Resp 19; Pulse Ox 98% on R/A; kd3 19:39 Body Mass Index 33.28 (90.72 kg, 165.1 cm) cm10 ED Course: 19:19 Patient arrived in ED. gm2 19:41 Triage completed. cm10 19:41 Arm band placed on right wrist. Patient placed in an exam room, on a stretcher. cm10 19:58 Osito Amaro MD is Attending Physician. rn 20:34 Jasmyn Dempsey RN is Primary Nurse. kd3 21:07 Acetaminophen Sent. kd3 21:07 Basic Metabolic Panel Sent. kd3 21:07 CBC with Diff Sent. kd3 21:07 ETOH Level Sent. kd3 21:07 Hepatic Function Sent. kd3 21:07 PT-INR Sent. kd3 21:07 Ptt, Activated Sent. kd3 21:07 Salicylate Sent. kd3 21:07 Urinalysis w/ reflexes Sent. kd3 21:07 Urine Drug Screen Sent. kd3 21:08 Inserted saline lock: 20 gauge in right forearm, using aseptic technique. Blood kd3 collected. Flushed with 10 mL NS. 21:08 Initial lab(s) drawn, by me, sent to lab. Urine collected: clean catch specimen, clear, kd3 EKG done, by ED staff. 22:00 XRAY Chest (1 view) In Process Unspecified. EDMS 22:09 No provider procedures requiring assistance completed. IV discontinued, intact, kd3 bleeding controlled, No redness/swelling at site. Pressure dressing applied. 22:10 Patient has correct armband on for positive identification. Provided Education on: d/c kd3 paperwork . Administered Medications: 21:07 Drug: Haloperidol IVP 2.5 mg/50 mL 2.5 mg IVP once; Place patient on a school bus monitor kd3 Route: IVP; Site: right forearm; 21:14 Drug: NS 0.9% IV 1000 ml IV at 1000 ml once; to be given as a bolus over 60 minutes kd3 Route: IV; Rate: 1000 ml; Site: right forearm; Medication: 22:10 VIS not applicable for this client. kd3 Outcome: 22:09 Discharged to home ambulatory, with family, kd3 22:09 Condition: stable 22:09 Discharge instructions given to patient, family, Instructed on discharge instructions, follow up and referral plans. Demonstrated understanding of instructions, follow-up care, 22:11 Discharge ordered by . rn 22:16 Patient left the ED. kd3 Signatures: Dispatcher [employer] EDMS Osito Amaro MD MD rn Doucette, Kyli RN RN kd3 Meaghan Mccauley RN RN [id number] Ada Garcia 2
--- NOTE | 2025-01-12 22:11 | EDPHYS ---
Physician Documentation [facility] Name: Ezequiel Figueroa Age: 44 yrs Sex: Male : 1980 Arrival Date: 01/12/2025 Time: 19:13 Bed 8 Private MD: ED Physician Osito Amaro HPI: 01/12 21:07 This 44 yrs old Male presents to ER via Ambulatory with complaints of Anxiety. rn 21:08 Family reports patient is having "panic attack". Family reports happens once or twice a rn week but is able to calm down usually on his own. Does not take his medication that is prescribed regularly. Has not taken his medicine today. No fever or chills. Family reports taking penicillin due to dental infection and pain. No vomiting or diarrhea. No cough or shortness of breath. No skin rashes. Family member reports this is exactly how he acts when he has panic attacks.. Severity of symptoms: At their worst the symptoms were moderate in the emergency department the symptoms are unchanged. The patient has experienced similar episodes in the past. The patient has been recently seen by a physician: Seen by psychiatrist on Wednesday, mother was not at appointment. 21:08 Mother denies any signs of intent to harm himself or others. rn Historical: - Allergies: 19:39 Benadryl; cm10 - Home Meds: 19:41 benztropine 0.5 mg Oral tablet [Active]; metformin 1,000 mg Oral tablet 2 times per day cm10 [Active]; paliperidone 6 mg oral Tablet, Extended Release 24 hr [Active]; glipizide 10 mg Oral tablet 1 tab [Active]; trazodone 100 mg Oral tablet [Active]; - PMHx: 19:39 Bipolar disorder; Diabetes - IDDM; Hypertension; Schizophrenia; cm10 - Immunization history:: Adult Immunizations up to date. - Infectious Disease History:: Denies. - Social history:: Smoking status: Patient reports the use of cigarette tobacco products, smokes more than three packs cigarettes per day. - Family history:: not pertinent. - Hospitalizations: : No recent hospitalization is reported. ROS: 21:08 Constitutional: Negative for fever, chills, and weight loss, Neck: Negative for injury, rn pain, and swelling, Cardiovascular: Negative for chest pain, palpitations, and edema, Respiratory: Negative for shortness of breath, cough, wheezing, and pleuritic chest pain, Abdomen/GI: Negative for abdominal pain, nausea, vomiting, diarrhea, and constipation, Back: Negative for injury and pain, MS/Extremity: Negative for injury and deformity, Skin: Negative for injury, rash, and discoloration, Neuro: Negative for headache, weakness, numbness, tingling, and seizure, Exam: 21:08 Constitutional: This is a well developed, well nourished patient who is awake, alert, rn psychomotor agitation noted, pleasant, easily redirectable and follows commands. Not harming himself or others. Head/Face: Normocephalic, atraumatic. ENT: Dry mucous membranes Cardiovascular: Regular rate and rhythm. No pulse deficits. Respiratory: Mild tachypnea Abdomen/GI: Soft, non-tender Skin: No rash or lesions MS/ Extremity: Pulses equal, no cyanosis. Neurovascular intact. Full, normal range of motion. Equal circumference. Neuro: Awake and alert, GCS 15, oriented to person, and situation. Cranial nerves II-XII grossly intact. Motor strength 5/5 in all extremities. Sensory grossly intact. Cerebellar exam normal. Normal gait. 21:12 ECG was reviewed by the Attending Physician. rn Vital Signs: 19:39 BP 160 / 110; Pulse 98; Resp 24; Temp 97.6(O); Pulse Ox 98% on R/A; Weight 90.72 kg; cm10 Height 5 ft. 5 in. ; 21:27 BP 157 / 100; Pulse 90; Resp 19; Pulse Ox 98% on R/A; kd3 19:39 Body Mass Index 33.28 (90.72 kg, 165.1 cm) cm10 MDM: 19:58 Medical Screening Exam initiated rn 22:09 Differential Diagnosis Anxiety, psychomotor agitation, adverse effect of journeyman painter medication. Data reviewed: vital signs, nurses notes, lab test result(s), EKG, radiologic studies, plain films, and as a result, I will discharge patient. Counseling: I had a detailed discussion with the patient and/or guardian regarding the historical points, exam findings, and any diagnostic results supporting the discharge/admit diagnosis, lab results, radiology results, the need for outpatient follow up, to return to the emergency department if symptoms worsen or persist or if there are any questions or concerns that arise at home. Response to treatment: the patient's symptoms have markedly improved after treatment, and as a result, I will discharge patient. Special discussion: I discussed with the patient/guardian in detail that at this point there is no indication for admission to the hospital. It is understood, however, that if the symptoms persist or worsen the patient needs to return immediately for re-evaluation. Based on the history and exam findings, there is no indication for further emergent testing or inpatient evaluation. I discussed with the patient/guardian the need to see the psychiatrist for further evaluation of the symptoms. ED course: No acute findings and workup. Patient markedly improved after fluids and Haldol. Patient much more talkative and no longer agitated. Patient states wants IV removed and wants to go home. Mother agrees that he is doing a lot better and would like to take him home. Recommend psychiatric follow-up for medication reconciliation and review.. 01/12 19:47 Order name: Acetaminophen; Complete Time: 21:44 gb01/12 19:47 Order name: Basic Metabolic Panel; Complete Time: 21:44 gb01/12 19:47 Order name: CBC with Diff; Complete Time: 21:44 gb01/12 19:47 Order name: ETOH Level; Complete Time: 21:44 gb01/12 19:47 Order name: Hepatic Function; Complete Time: 21:44 gb01/12 19:47 Order name: PT-INR; Complete Time: 21:44 gb01/12 19:47 Order name: Ptt, Activated; Complete Time: 21:44 gb01/12 19:47 Order name: Salicylate; Complete Time: 21:44 gb01/12 19:47 Order name: Urinalysis w/ reflexes; Complete Time: 21:44 gb01/12 19:47 Order name: Urine Drug Screen; Complete Time: 21:44 gb01/12 21:10 Order name: XRAY Chest (1 view); Complete Time: 22:09 rn 01/12 19:47 Order name: EKG; Complete Time: 19:48 gb01/12 19:47 Order name: EKG - Nurse/Tech; Complete Time: 21: gb01/12 19:47 Order name: IV Saline Lock; Complete Time: 21: gb01/12 19:47 Order name: Labs collected and sent; Complete Time: 21:07 gb EC:12 Rate is 95 beats/min. Rhythm is regular. QRS [place] is Normal. IN interval is normal. QRS rn interval is normal. QT interval is normal. No Q waves. T waves are Normal. No ST changes noted. Clinical impression: NSR w/ Non-specific ST/T Changes. Interpreted by me. Reviewed by me. Administered Medications: 21:07 Drug: Haloperidol IVP 2.5 mg/50 mL 2.5 mg IVP once; Place patient on a manager cardiac cath kd3 Route: IVP; Site: right forearm; 21:14 Drug: NS 0.9% IV 1000 ml IV at 1000 ml once; to be given as a bolus over 60 minutes kd3 Route: IV; Rate: 1000 ml; Site: right forearm; Disposition Summary: 01/12/25 22:11 Discharge Ordered Notes: Location: Home rn Problem: an ongoing problem rn Symptoms: have improved rn Condition: Stable rn Diagnosis - Anxiety disorder, unspecified rn Followup: rn - With: Private Physician - When: As needed - Reason: Recheck today's complaints, Re-evaluation by your physician Discharge Instructions: - Discharge Summary Sheet rn - Panic Attack rn - Dehydration, Adult rn - Managing Anxiety, Adult rn Forms: - Medication Reconciliation Form rn - Antibiotic pattern drafter - Prescription Opioid Use rn - Patient Portal Instructions rn - Leadership Thank You Letter rn Signatures: Dispatcher [employer] EDOsito Lopez MD MD rn Doucette, Kyli, RN STELLA durant3 Meaghan Mccauley, RN RN [id number] Sadia Rachel MD MD gb1 Corrections: (The following items were deleted from the chart) 20:54 19:47 Suicide Screening (Walker) ordered. gb1 rn
[2025-01-12 22:36] VITALS: BP 157/100; TEMP 97.6; O2SAT 98
--- NOTE | 2025-01-16 11:14 | EKG ---
Test Date: 2025-01-12 Test Time: 20:53:47 Animal Health Technician: CHERRIE MEASUREMENT RESULTS: Intervals: Rate: 94 MN: 146 QRSD: 92 QT: 362 QTc: 452 [place]: P: 79 MN: 146 QRS: 49 T: 72 INTERPRETIVE STATEMENTS: Normal sinus rhythm Possible Left atrial enlargement Anterior infarct, age undetermined Abnormal ECG Compared to ECG 05/02/2020 11:04:32 No significant changes Electronically Signed On 01-16-25 11:03:41 CDT by Keegan Almonte
== END 2025-01-12 22:16 | disposition home or self-care (01) ==
LOC: ER 19:13
DX: F41.9 Anxiety disorder, unspecified (principal); F17.210 Nicotine dependence, cigarettes, uncomplicated
CPT/HCPCS: 93005; 85025; 80048; 36415; 85610; 80076; 85730; 81003; 80307; 71045; 96374; 99284; 80143; 80179; 82077; J1630; J7030

== ENCOUNTER 2025-01-18 23:17 | Emergency (ER) | payer OTHER ==
[2025-01-19 00:15] LABS: Absolute Eosinophils 0.1 K/uL (0-0.5); Absolute Lymphocytes (CBC) 1.9 K/uL (0.7-4.9); Absolute Monocytes 0.6 K/uL (0.1-1.3); Absolute Neutrophil 4.2 K/uL (1.8-8.0); Basophils % 0.5 % (0-1.3); Eosinophils % 0.9 % (0-4.4); Hematocrit 42.4 % (39.6-49.0); Hemoglobin 14.6 g/dL (13.6-17.9); Lymphocytes % 27.5 % (15.3-44.8); MCH 30.3 pg (27.0-35.0); MCHC 34.4 g/dL (32.0-36.0); MCV 88.2 fL (80-100); Monocytes % 9.3 % (3.3-12.3); Neutrophils % 61.8 % (41.7-73.7); Platelets 238 thou/uL (152-406); Red Cell Distribution Width 13.7 % (12.1-15.2)
[2025-01-19 00:16] LABS: PT Prothrombin Time 12.3 SECONDS (10-13.0); Protime INR 1.08
[2025-01-19 00:30] LABS: Influenza A Ag Negative; Influenza B Ag Negative; SARS-CoV-2 Antigen Rapid Res Negative (Negative)
[2025-01-19 00:38] LABS: ALT/SGPT 21 U/L (16-61); Albumin 3.7 g/dL (3.4-5.0); Alkaline Phosphatase 91 U/L (45-117); Anion Gap 8.8 mEq/L (5.0-15.0); BUN Blood Urea Nitrogen 7 mg/dL (7-18); Bicarbonate 27 mEq/L (21-32); Bilirubin Total 0.4 mg/dL (0.2-1.0); Globulin 3.6 g/dL (2.3-3.5); Glomerular Filtration Rate 119 ml/min (=/>90); Glucose Level 95 mg/dL (74-106); Magnesium 1.9 mg/dL (1.6-2.4); NT PRO-BNP 5 pg/mL (<125); Potassium 3.8 mEq/L (3.5-5.1); Protein, Total 7.3 g/dL (6.4-8.2); Sodium Level 138 mEq/L (136-145)
[2025-01-19 00:39] LABS: AST/SGOT < 10 U/L (15-37); Bilirubin Direct < 0.2 mg/dL (0-0.2); Bilirubin Indirect, Calculated 0.2 mg/dL (0.2-0.8)
[2025-01-19] MEDS ORDERED: NA CHLORIDE 0.9% 1,000 ML ONE (00:49)
[2025-01-19 01:20] LABS: Barbiturates NEGATIVE (NEGATIVE); Benzodiazepines NEGATIVE (NEGATIVE); Cocaine NEGATIVE (NEGATIVE); METHAMPHETAM POSITIVE (NEGATIVE); Methadone NEGATIVE (NEGATIVE); Opiates NEGATIVE (NEGATIVE); Phencyclidine NEGATIVE (NEGATIVE); THC Cannibis NEGATIVE (NEGATIVE)
--- NOTE | 2025-01-19 02:21 | EDPHYS ---
Physician Documentation [facility] Name: Ezequiel Figueroa Age: 44 yrs Sex: Male : 1980 Arrival Date: 01/18/2025 Time: 23:17 Bed 17 Private MD: ED Physician Madi Bravo HPI: 01/19 02:18 This 44 yrs old Male presents to ER via EMS with complaints of Shortness Of sp4 Breath. 07:15 44-year-old male presents with complaint of shortness of breath. Patient arrived here sp4 with EMS. Patient has difficult time explaining his symptoms. EMS states patient was found outside of some restaurant. Patient has history of schizophrenia and history of wandering around town. . Historical: - Allergies: 01/18 23:26 Benadryl; ha1 - Home Meds: 23:26 paliperidone 6 mg Oral Tablet [Active]; trazodone 100 mg Oral tablet [Active]; ha1 glipizide 10 mg Oral tablet 1 tab [Active]; metformin 1 Oral tablet 2 times per day [Active]; benztropine 0.5 mg Oral tablet [Active]; - PMHx: 23:26 Bipolar disorder; Diabetes - IDDM; Hypertension; Schizophrenia; ha1 - Immunization history:: Adult Immunizations unknown. - Infectious Disease History:: Denies. - Social history:: Smoking status: unknown. - Family history:: not pertinent. ROS: 01/19 07:15 Constitutional: Negative for fever, chills, and weight loss, positive for shortness sp4 of breath All other systems are negative, Exam: 07:15 Constitutional: This is a well developed, well nourished patient who is awake, alert, sp4 and in no acute distress. Head/Face: Normocephalic, atraumatic. Eyes: Pupils equal round and reactive to light, extra-ocular motions intact. Lids and lashes normal. Conjunctiva and sclera are not injected. Cornea within normal limits. Periorbital areas with no swelling, redness, or edema. ENT: Nares patent. No nasal discharge, no septal abnormalities noted. Tympanic membranes are normal and external auditory canals are clear. Oropharynx with no redness, swelling, or masses, exudates, or evidence of obstruction, uvula midline. Mucous membranes moist. Neck: Trachea midline, no thyromegaly or masses palpated, and no cervical lymphadenopathy. Supple, full range of motion without nuchal rigidity, or vertebral point tenderness. Chest/axilla: Normal chest wall appearance and motion. Nontender with no deformity. No lesions are appreciated. Cardiovascular: Regular rate and rhythm with a normal S1 and S2. No gallops, murmurs, or rubs. Normal PMI, no JVD. No pulse deficits. Respiratory: Lungs have equal breath sounds bilaterally, clear to auscultation and percussion. No rales, rhonchi or wheezes noted. No increased work of breathing, no retractions or nasal flaring. Abdomen/GI: Soft, with normal bowel sounds. No distension or tympany. No guarding or rebound. No evidence of tenderness throughout. Back: No spinal tenderness. No costovertebral tenderness. Skin: Warm, dry with normal turgor. Normal color with no rashes, no lesions, and no evidence of cellulitis. MS/ Extremity: Pulses equal, no cyanosis. Neurovascular intact. Full, normal range of motion. Neuro: Awake and alert, GCS 15, oriented to person, place, time, and situation. Cranial nerves II-XII grossly intact. Motor strength 5/5 in all extremities. Sensory grossly intact. Psych: Awake, alert, with orientation to person, place and time. Behavior, mood, and affect are within normal limits Vital Signs: 01/18 23:18 BP 144 / 98; Pulse 104; Resp 16; Pulse Ox 99% on R/A; ay 23:22 BP 144 / 98; Pulse 107; Resp 20 S; Temp 97.8; Pulse Ox 98% on R/A; Weight 77.11 kg; ha1 Height 5 ft. 7 in. ; 01/19 00:00 BP 153 / 93; Pulse 66; Resp 14; Pulse Ox 99% ; ay 01:00 BP 136 / 87; Pulse 62; Resp 18; Pulse Ox 100% on R/A; ay 02:28 BP 154 / 99; Pulse 99; Resp 20; Temp 97.6; Pulse Ox 100% ; jj7 01/18 23:22 Body Mass Index 26.63 (77.11 kg, 170.18 cm) ha1 Rawlings Coma Score: 07:15 Eye Response: spontaneous(4). Motor Response: obeys commands(6). Verbal Response: sp4 oriented(5). Total: 15. MDM: 01/18 23:43 Medical Screening Exam initiated 4 01/19 07:15 Differential diagnosis: Anxiety Reaction asthma, Bronchitis Psychogenic reactive airway sp4 disease. Data reviewed: vital signs, nurses notes, EMS record, old medical records. ED course: Patient tested positive for methamphetamine which is likely the source of his problems. Patient stable for discharge from the emergency room.. 01/18 23:47 Order name: Basic Metabolic Panel; Complete Time: 00:45 4 01/18 23:47 Order name: CBC with Diff; Complete Time: 00:45 4 01/18 23:47 Order name: LFT's; Complete Time: 00:45 4 01/18 23:47 Order name: Magnesium; Complete Time: 00:45 4 01/18 23:47 Order name: NT PRO-BNP; Complete Time: 00:45 4 01/18 23:47 Order name: PT-INR; Complete Time: 00:45 4 01/18 23:47 Order name: Troponin HS; Complete Time: 00:45 4 01/18 23:47 Order name: COVID-19 Ag + Flu A+B Ag; Complete Time: 00:45 4 01/18 23:47 Order name: Urine Drug Screen; Complete Time: 02:17 4 01/18 23:47 Order name: XRAY Chest (1 view) 4 01/18 23:47 Order name: EKG; Complete Time: 23:47 4 01/18 23:47 Order name: IV Saline Lock; Complete Time: 00:10 4 01/18 23:47 Order name: Labs collected and sent; Complete Time: 00:10 4 01/18 23:47 Order name: O2 Per Protocol; Complete Time: 00:10 4 01/18 23:47 Order name: O2 Sat Monitoring; Complete Time: 00:10 4 Administered Medications: 01:01 Drug: NS 0.9% IV 1000 ml IV at 1 bolus Per protocol; to be given as a bolus over 60 ay minutes Route: IV; Rate: 1 bolus; Site: right antecubital; 02:10 Follow up: IV Status: Completed infusion jj7 Disposition Summary: 01/19/25 02:20 Discharge Ordered Notes: Location: Home sp4 Problem: new sp4 Symptoms: have improved sp4 Condition: Stable sp4 Diagnosis - Adverse effect of amphetamines sp4 - Acute methamphetamine intoxication sp4 Followup: sp4 - With: Private Physician - When: 7 - 10 days - Reason: Recheck today's complaints Discharge Instructions: - Discharge Summary Sheet sp4 - Methamphetamines Use Disorder sp4 Forms: - Patient Portal Instructions sp4 Signatures: Dispatcher [employer] EDAshlie Zuleta RN RN ha1 Madi Bravo MD MD sp4 August Cyr, RN Marissa Saavedra RN jj7
--- NOTE | 2025-01-19 02:21 | ER ---
Nurse's Notes [facility] Name: Ezequiel Figueroa Age: 44 yrs Sex: Male : 1980 Arrival Date: 01/18/2025 Time: 23:17 Bed 17 Private MD: Diagnosis: Adverse effect of amphetamines;Acute methamphetamine intoxication Presentation: 01/18 23:22 Chief complaint: EMS states: PD CALLED US BECAUSE THEY FOUND HIM IN FRONT OF A ha1 RESTAURANT COMPLAINING OF SHORTNESS OF BREATH, ON OUR ARRIVAL HE WAS HAVING LABOR BREATHING. OXYGEN SATURATION 95% IN ROOM AIR. Coronavirus screen: Client denies travel out of the [place] in the last 14 days. Ebola Screen: No symptoms or risks identified at this time. Initial Sepsis Screen: Does the patient meet any 2 criteria? No. Patient's initial sepsis screen is negative. Does the patient have a suspected source of infection? No. Patient's initial sepsis screen is negative. Risk Assessment: Do you want to hurt yourself or someone else? Patient reports no desire to harm self or others. Onset of symptoms was January 18, 2025. 23:22 Method Of Arrival: EMS: [facility] 23:22 Acuity: BRANDI 3 ha1 Triage Assessment: 23:26 General: Appears uncomfortable, Behavior is cooperative. Pain: Denies pain. Neuro: ha1 Level of Consciousness is awake, alert, obeys commands, Oriented to person, place, time, situation. Cardiovascular: Patient's skin is warm and dry. Respiratory: Reports shortness of breath at rest Airway is patent Respiratory effort is even, unlabored, Respiratory pattern is regular, symmetrical. GI: No signs and/or symptoms were reported involving the gastrointestinal system. Derm: Skin is moist, Skin is normal. Musculoskeletal: Circulation, motion, and sensation intact. Range of motion: intact in all extremities. Historical: - Allergies: 23:26 Benadryl; ha1 - Home Meds: 23:26 paliperidone 6 mg Oral Tablet [Active]; trazodone 100 mg Oral tablet [Active]; ha1 glipizide 10 mg Oral tablet 1 tab [Active]; metformin 1 Oral tablet 2 times per day [Active]; benztropine 0.5 mg Oral tablet [Active]; - PMHx: 23:26 Bipolar disorder; Diabetes - IDDM; Hypertension; Schizophrenia; ha1 - Immunization history:: Adult Immunizations unknown. - Infectious Disease History:: Denies. - Social history:: Smoking status: unknown. - Family history:: not pertinent. Screenin:29 [facility] ED Fall Risk Assessment (Adult) History of falling in the last 3 months, ay including since admission No falls in past 3 months (0 pts) Confusion or Disorientation No (0 pts) Intoxicated or Sedated No (0 pts) Impaired Gait No (0 pts) Mobility Assist Device Used No (0 pt) Altered Elimination No (0 pt) Score/Fall Risk Level 0 - 2 = Low Risk Oriented to surroundings, Maintained a safe environment, Educated pt \\T\\ family on fall prevention, incl call for assistance when getting out of bed, Assessed \\T\\ reinforced patient's understanding of fall precautions. Abuse screen: Denies threats or abuse. Nutritional screening: No deficits noted. Tuberculosis screening: No symptoms or risk factors identified. Assessment: 23:29 General: Appears in no apparent distress. uncomfortable, Behavior is calm, cooperative. ay Pain: Complains of pain in chest Pain began. Neuro: Level of Consciousness is awake, alert, obeys commands, Oriented to person, place, time, situation, Speech is normal. Cardiovascular: Reports chest pain, shortness of breath, Denies nausea, vomiting, Capillary refill < 3 seconds. Respiratory: Reports cough that is non-productive, Airway is patent Respiratory effort is even, unlabored, Respiratory pattern is regular, symmetrical. GI: Abdomen is round. : No signs and/or symptoms were reported regarding the genitourinary system. EENT: No signs and/or symptoms were reported regarding the EENT system. Derm: No signs and/or symptoms reported regarding the dermatologic system. 23:30 Reassessment: patient refusing EKG, states " you are not going to connect all of those ha1 sticky things stay away from me." provided education on the importance of getting an EKG completed. Notified Dr. Bravo. 01/19 02:10 Reassessment: ASSUMED CARE OF PT. PT SLEEPING. NO DISTRESS NOTED. jj7 Vital Signs: 01/18 23:18 BP 144 / 98; Pulse 104; Resp 16; Pulse Ox 99% on R/A; ay 23:22 BP 144 / 98; Pulse 107; Resp 20 S; Temp 97.8; Pulse Ox 98% on R/A; Weight 77.11 kg; ha1 Height 5 ft. 7 in. ; 01/19 00:00 BP 153 / 93; Pulse 66; Resp 14; Pulse Ox 99% ; ay 01:00 BP 136 / 87; Pulse 62; Resp 18; Pulse Ox 100% on R/A; ay 02:28 BP 154 / 99; Pulse 99; Resp 20; Temp 97.6; Pulse Ox 100% ; jj7 01/18 23:22 Body Mass Index 26.63 (77.11 kg, 170.18 cm) ha1 Kapil Coma Score: 07:15 Eye Response: spontaneous(4). Motor Response: obeys commands(6). Verbal Response: sp4 oriented(5). Total: 15. ED Course: 01/18 23:22 Patient arrived in ED. ha1 23:26 Triage completed. ha1 23:28 August Cyr RN is Primary Nurse. ay 23:42 Madi Bravo MD is Attending Physician. sp4 01/19 00:10 Inserted saline lock: 20 gauge in right forearm, using aseptic technique. Blood vk collected. Flushed with 10 mL NS. 00:10 EKG done, patient refused. vk 00:22 XRAY Chest (1 view) In Process Unspecified. EDMS 02:27 No provider procedures requiring assistance completed. IV discontinued, intact, jj7 bleeding controlled, No redness/swelling at site. Pressure dressing applied. 02:27 Arm band placed on right wrist. jj7 Administered Medications: 01:01 Drug: NS 0.9% IV 1000 ml IV at 1 bolus Per protocol; to be given as a bolus over 60 ay minutes Route: IV; Rate: 1 bolus; Site: right antecubital; 02:10 Follow up: IV Status: Completed infusion jj7 Medication: 02:28 VIS not applicable for this client. jj7 Outcome: 02:20 Discharge ordered by . sp4 02:27 Discharged to home ambulatory, jj7 02:27 Condition: improved 02:27 Discharge instructions given to patient, Instructed on discharge instructions, Demonstrated understanding of instructions, 02:29 Patient left the ED. jj7 Signatures: Dispatcher [employer] EDTN Ashlie Rangel RN RN ha1 Marissa Bhatt, RN RN jj7 Madi Bravo MD MD sp4 Lou Jackson Awudu, RN RN ay
[2025-01-19 02:38] VITALS: O2SAT 100
[2025-01-19 02:40] VITALS: BP 154/99; TEMP 97.6
--- NOTE | 2025-01-19 05:44 | RAD REPORT ---
PROCEDURE: XR Chest, 1 View CLINICAL INDICATION: The patient is 44 years old and is Male; CHEST PAIN Bed Name: 17 TECHNIQUE: Frontal view of the chest. COMPARISON: No relevant prior studies available. FINDINGS: LUNGS: No discrete focal consolidation. PLEURAL SPACE: No appreciable pleural effusion or pneumothorax. MEDIASTINUM: Unremarkable cardiomediastinal contour. BONES/JOINTS: No acute osseous abnormality. IMPRESSION: No acute cardiopulmonary abnormality. Electronically signed by: Case Hubbard MD 01/19/2025 12:40 AM CDT RP Due to temporary technical issues with the [employer] reporting system, reports are being anton d by the in-house radiologist without review as a courtesy to ensure prompt reporting the interpreting radiologist is fully responsible for the content of the report. Transcribed Date/Time: 01/19/2025 5:44 AM
== END 2025-01-19 02:29 | disposition home or self-care (01) ==
LOC: ER 23:17
DX: F15.129 Other stimulant abuse with intoxication, unspecified (principal); T43.625A Adverse effect of amphetamines, initial encounter; F20.9 Schizophrenia, unspecified; Z11.52 Encounter for screening for COVID-19
CPT/HCPCS: 85025; 80048; 36415; 83735; 85610; 80076; 84484; 83880; 80307; 71045; 96360; 99284; 87428; J7030